=== PATIENT | male | born 1930 | race Caucasian/White ===

== ENCOUNTER → 2016-07-29 | Outpatient (CLI) | payer MEDICARE, BC ==
[~2016-07-29] MED LIST: ACULAR LS 5 ML5 ML; LIPITOR20 MG PO; LOFIBRA160 MG PO; LYRICA 50MG CAP50 MG PO; LYRICA 75MG CAP75 MG PO; OCUFLOX OPHTH DR5 ML; PRED FORTE 1 ML1 ML; PROSCAR 5MG5 MG PO; [UNRECOGNIZED DRUG - OTHER] PO; [UNRECOGNIZED DRUG - OTHER] PO
== END ==
LOC: MHCPAIN 09:59
DX: G89.29 Other chronic pain (principal); M50.90 Cervical disc disorder, unspecified, unspecified cervical region; G44.40 Drug-induced headache, not elsewhere classified, not intractable
CPT/HCPCS: G0463

== ENCOUNTER → 2016-10-07 | Outpatient (CLI) | payer MEDICARE, BC | LOC: COL.RAD 08:51 | DX: K57.92 Diverticulitis of intestine, part unspecified, without perforation or abscess without bleeding (principal); R10.9 Unspecified abdominal pain; R19.7 Diarrhea, unspecified; R11.2 Nausea with vomiting, unspecified ==

== ENCOUNTER → 2017-07-12 | Outpatient (CLI) | payer MEDICARE, BC | LOC: MHCPAIN 09:47 | DX: G89.29 Other chronic pain (principal); M79.2 Neuralgia and neuritis, unspecified; M79.1 Myalgia; M79.673 Pain in unspecified foot; M54.81 Occipital neuralgia; Z87.891 Personal history of nicotine dependence | CPT/HCPCS: G0463 ==

== ENCOUNTER → 2017-07-14 | Outpatient (CLI) | payer MEDICARE, BC | LOC: COL.CARD 08:34 | DX: M79.2 Neuralgia and neuritis, unspecified (principal) ==

== ENCOUNTER → 2017-07-14 | Outpatient (CLI) | payer MEDICARE, BC | LOC: MHCPAIN 08:50 | DX: M54.81 Occipital neuralgia (principal) | CPT/HCPCS: J1100 ==

== ENCOUNTER → 2017-07-28 | Outpatient (CLI) | payer MEDICARE, BC | LOC: MHCPAIN 09:29 | DX: G89.29 Other chronic pain (principal); M79.2 Neuralgia and neuritis, unspecified; M79.1 Myalgia; M79.606 Pain in leg, unspecified; Z87.891 Personal history of nicotine dependence | CPT/HCPCS: G0463 ==

== ENCOUNTER → 2017-09-18 | Outpatient (CLI) | payer MEDICARE, BC | LOC: MHCPAIN 09:18 | DX: G89.29 Other chronic pain (principal); M79.2 Neuralgia and neuritis, unspecified; M79.1 Myalgia | CPT/HCPCS: G0463 ==

== ENCOUNTER → 2017-10-25 | Outpatient (CLI) | payer MEDICARE, BC | LOC: MHCPAIN 08:49 | DX: G89.29 Other chronic pain (principal); M79.605 Pain in left leg; M79.604 Pain in right leg; M79.2 Neuralgia and neuritis, unspecified; Z87.891 Personal history of nicotine dependence | CPT/HCPCS: G0463 ==

== ENCOUNTER → 2017-12-06 | Outpatient (CLI) | payer MEDICARE, BC | LOC: COL.VAS 09:37 | DX: I08.0 Rheumatic disorders of both mitral and aortic valves (principal); R93.1 Abnormal findings on diagnostic imaging of heart and coronary circulation ==

== ENCOUNTER → 2017-12-07 | Outpatient (CLI) | payer MEDICARE, BC | LOC: MHCPAIN 09:38 | DX: G89.29 Other chronic pain (principal); M79.2 Neuralgia and neuritis, unspecified; M79.1 Myalgia; M79.672 Pain in left foot; M79.671 Pain in right foot; R51 Headache | CPT/HCPCS: G0463 ==

== ENCOUNTER 2018-03-09 12:00 | Outpatient (RCR) | payer MEDICARE, BC | END 2018-03-09 12:55 | disposition home or self-care (01) | LOC: WSPT 12:00 | DX: R68.89 Other general symptoms and signs (principal); Z99.3 Dependence on wheelchair | CPT/HCPCS: G8978-GP; G8979-GP; G8980-GP ==

== ENCOUNTER 2018-05-23 10:18 | Outpatient (RCR) | payer MEDICARE, BC | END 2018-08-21 | disposition home or self-care (01) | LOC: MKS.ESL.OT | DX: G60.9 Hereditary and idiopathic neuropathy, unspecified (principal); M25.511 Pain in right shoulder; M25.611 Stiffness of right shoulder, not elsewhere classified; F11.90 Opioid use, unspecified, uncomplicated; Z79.899 Other long term (current) drug therapy | CPT/HCPCS: G8978-GO; G8979-GO; G8980-GO ==

== ENCOUNTER 2021-12-07 15:07 | Outpatient (RCR) | payer MEDICARE, BC | END 2021-12-16 | disposition still patient (30) | LOC: MKS.ESL.OT | DX: G60.9 Hereditary and idiopathic neuropathy, unspecified (principal) ==

== ENCOUNTER 2022-09-06 16:23 | Outpatient (RCR) | payer MEDICARE, BC | END 2022-09-06 16:24 | LOC: MKS.ESL.OT 16:23 | DX: G60.9 Hereditary and idiopathic neuropathy, unspecified (principal) ==